=== PATIENT | male | born 1985 | race Caucasian/White ===

== ENCOUNTER 2016-11-11 19:36 | Emergency (ER) | payer OTHER | END 2016-11-11 20:56 | disposition home or self-care (01) | LOC: ER 19:36 | DX: M54.5 Low back pain (principal); Z79.899 Other long term (current) drug therapy; Z90.49 Acquired absence of other specified parts of digestive tract; Z90.89 Acquired absence of other organs; V89.2XXA Person injured in unspecified motor-vehicle accident, traffic, initial encounter ==